=== PATIENT | female | born 1960 | race Caucasian/White ===

== ENCOUNTER 2019-07-21 16:56 | Outpatient (REF) | payer BC, SELFPAY ==
[2019-07-21 18:24] LABS: ALT 52 U/L (14-59); AST 19 U/L (15-37); Albumin 3.7 g/dL (3.4-5.0); Alkaline Phosphatase 115 U/L (46-116); Anion Gap 11.7 mmol/L (3-11); BUN 16 mg/dL (7-18); Bilirubin, Total 0.3 mg/dL (0.2-1.0); CO2 25.3 mmol/L (21.0-32.0); CREATININE 0.61 mg/dL (0.55-1.02); Calcium 9.1 mg/dL (8.5-10.1); Calculated LDL 119 mg/dL; Chloride 105 mmol/L (98-107); Cholesterol 196 mg/dL (50-200); Glucose 93 mg/dL (70-100); HDL Cholesterol 56 mg/dL (40-60); Potassium 3.9 mmol/L (3.5-5.1); Sodium 142 mmol/L (136-145); Total Protein 7.1 g/dL (6.4-8.2); Triglyceride 105 mg/dL (30-150)
== END 2019-07-21 17:16 ==
LOC: NCHCN 16:56
PROVIDERS: PCP Nurse Practitioner; Visit Provider Nurse Practitioner
DX: R10.9 Unspecified abdominal pain (principal); Z13.220 Encounter for screening for lipoid disorders; Z00.00 Encounter for general adult medical examination without abnormal findings; Z98.42 Cataract extraction status, left eye
CPT/HCPCS: 80053; 80061; 87086

== ENCOUNTER 2019-08-14 00:25 | Outpatient (CLI) | payer BC, SELFPAY ==
--- NOTE | 2019-08-14 15:54 | DI.MAMMO_ITS ---
EXAM: MG MAMMO SCREENING CLINICAL HISTORY: SCREENING Z12.39 TECHNIQUE: Mammograms were interpreted according to the usual protocol including computer analysis w [email or web address] CAD system, tomosynthesis and C-view imaging. COMPARISON: 2009 through 2016 FINDINGS: The breasts are composed of fatty density tissue, Breast Density category A. No suspicious masses or suspicious microcalcifications are seen. No skin thickening or abnormal axillary lymph nodes are se en. There has been no significant change from prior exams. IMPRESSION: Category 1, negative mammogram. Yearly screening mammography is recommended. BI-RADS Cat 1 - Negative Breast Density - Category A - Almost entirely fatty
== END 2019-08-14 00:45 ==
PROVIDERS: PCP Nurse Practitioner; Visit Provider Nurse Practitioner
DX: Z12.31 Encounter for screening mammogram for malignant neoplasm of breast (principal)
CPT/HCPCS: 77063; 77067

== ENCOUNTER 2019-08-20 12:25 | Outpatient (CLI) | payer BC, SELFPAY ==
[2019-08-20 13:12] LABS: Troponin I < 0.05 ng/mL (0.00-0.06)
[2019-08-20 13:38] LABS: D-Dimer 481 ng/mlFEU (<500)
== END 2019-08-20 12:45 ==
PROVIDERS: PCP Nurse Practitioner; Visit Provider Nurse Practitioner
DX: R07.9 Chest pain, unspecified (principal); R06.02 Shortness of breath; R07.89 Other chest pain
CPT/HCPCS: 36415; 84484; 85379

== ENCOUNTER 2019-08-21 07:16 | Outpatient (CLI) | payer BC, SELFPAY ==
--- NOTE | 2019-08-21 15:37 | DI.RAD_ITS ---
EXAM: XR CHEST 2V PA LATERAL CLINICAL HISTORY: SHORTNESS OF BREATH, R06.02 TECHNIQUE: COMPARISON: CHEST 2 VIEWS PA,LAT from 04/11/2017 FINDINGS: Heart is not enlarged. There is mild elevation of the diaphragm on the right unchanged from previous examination of March 2017. Lungs are predominantly clear with minimal apparent changes of scarring. No pleural effusion seen. IMPRESSION: No evidence of acute change.
== END 2019-08-21 07:36 ==
PROVIDERS: PCP Nurse Practitioner; Visit Provider Nurse Practitioner
DX: R06.02 Shortness of breath (principal); R00.2 Palpitations; I49.3 Ventricular premature depolarization; I49.1 Atrial premature depolarization
CPT/HCPCS: 71046; 93225

== ENCOUNTER 2019-08-22 17:50 | Outpatient (CLI) | payer BC, SELFPAY ==
--- NOTE | 2019-08-25 08:45 | W.HOLTRPT ---
Holter Monitor Report Holter Monitor Note: Rhythm throughout was sinus Average heart rate was 82/minute. There were very rare ventricular ectopic beats . There were occasional atrial premature beats, some of which appeared symptomatic. There was a run of atrial premature beats . There were no pauses or bradydysrhythmias Date of service: 08/25/19 Time of Service: 08:49
== END 2019-08-22 18:10 ==
PROVIDERS: PCP Nurse Practitioner; Visit Provider Nurse Practitioner
DX: R06.02 Shortness of breath (principal); I49.3 Ventricular premature depolarization; I49.1 Atrial premature depolarization; R00.2 Palpitations
CPT/HCPCS: 93226

== ENCOUNTER 2019-08-29 00:43 | Outpatient (CLI) | payer BC, SELFPAY ==
--- NOTE | 2019-08-29 14:45 | DI.US_ITS ---
APPROVED REPORT Conclusion Left Ventricle : The left ventricle is normal. There is normal left ventricular wall thickness. The l eft ventricular diastolic function is normal. Left ventricular systolic function is normal. There is normal LV segmental wall motion. LVEF is 60-64%. Right Ventricle : The right ventricle is normal size. The right ventricular systolic function is norm al. Atria : The left atrium is normal. The right atrium size is normal. Aortic Valve : Aortic valve is grossly normal in structure. There is no aortic valvular stenosis. No aortic regurgitation is present. Mitral Valve : The mitral valve is normal in structure. No evidence of mitral valve stenosis. Trace m itral regurgitation. Tricuspid Valve : The tricuspid valve is normal in structure. Trace tricuspid regurgitation. Pulmonic Valve : Pulmonic valve is not well visualized. Great Vessels : IVC is normal in size and collapses >50% with inspiration. Estimated RVSP between 18 -21 mmHg. Pericardium : There is no pericardial effusion. Prominent anterior epicardial fat pad is present. EXAM: Comprehensive 2D, Doppler, and color-flow Echocardiogram Patient Location: Out-Patient Triage Licensed Practical Nurse: JENNIFRE Villavicencio (AE) Indications: Chest Pain Left Ventricle The left ventricle is normal. Left ventricular systolic function is normal. There is normal left vent ricular wall thickness. There is normal LV segmental wall motion. The left ventricular diastolic func tion is normal. LVEF is 60-64%. Right Ventricle The right ventricle is normal size. The right ventricular systolic function is normal. Atria The left atrium is normal. The right atrium size is normal. Aortic Valve Aortic valve is grossly normal in structure. There is no aortic valvular stenosis. No aortic regurgit ation is present. Mitral Valve The mitral valve is normal in structure. No evidence of mitral valve stenosis. Trace mitral regurgita tion. Tricuspid Valve The tricuspid valve is normal in structure. There is no tricuspid valve stenosis. Trace tricuspid reg urgitation. Pulmonic Valve Pulmonic valve is not well visualized. Great Vessels The aortic root size is normal. The ascending aorta is normal in size. IVC is normal in size and carlotta apses >50% with inspiration. Estimated RVSP between 18-21 mmHg. Pericardium There is no pericardial effusion. Prominent anterior epicardial fat pad is present. 2D Dimensions IVSd 0.98 cm F: 0.6-1.0 LV EDV A2C 67.87 mL PWd 0.98 cm F: 0.6 - 1.0 LV EDV A4C 94.61 mL LVDd 4.35 cm F: 3.9 - 5.3 LA Volume Index A2C 22.37 mL/m2 LVDs 2.88 cm F: 2.2 - 3.5 LA Volume Index A4C 17.25 mL/m2 Aortic Root 2.82 cm F: 2.7 - 3.3 LA Volume Index Biplane 20.33 mL/m2 Left Atrium 3.05 cm F: 2.7 - 3.8 LA Area A4C 14.72 cm2 RA Area A4C 14.21 cm2 LA Area A2C 17.34 cm2 LVOT 1.92 cm (M/F) 1.5-2.5 LA/Aortic Root Ratio 0.93 Ascending Aorta 3.11 cm F: 2.3 - 3.1 EF AP4 59.12 % LVEF (Teich) 62.91 % EF AP2 62.18 % LVEF (Jeffers's) 61.10 % F: 54 - 74 EF BP 61.10 % FS 33.80 % LV Diastology E Decel Time 334.00 (160-240 msec) E/A Ratio 1.0 MED E' 0.08 (>0.07 m/s) LV E/e MED 6.96 (<14) LAT E' 0.12 (>0.1 m/s) LV E/e LAT 4.93 (<14) Aortic Valve LVOT Area 2.91 cm2 LVOT Peak Damian. 1.07 m/s LVOT Mean Damian. 0.70 m/s LVOT Peak Gr. 4.55 mmHg LVOT Mean Gr. 2.29 mmHg LVOT VTI 0.21 m AoV Peak Damian. 1.33 (0.5-1.3 m/s) AoV Mean Damian. 0.98 m/s AO Peak GR. 7.04 mmHg AO Mean GR. 4.20 (<5 mmHg) AO VTI 0.27 (0.18-0.25 m) KARLEE (VTI) 2.28 (2.5-4.5 cm2) KARLEE (VTI) Index 1.07 cm/m2 Mitral Valve MV E Max Damian. 0.59 (0.4-1.3 m/s) MV A Velocity 0.61 (0.4-1.3 m/s) E/A Ratio 0.97 MV Decel. Time 334.27 (160-240 msec) MV PHT 96.94 msec MVA PHT 2.27 cm2 Pulmonary Valve PV Peak Velocity 0.81 (0.5-1.5 m/s) Tricuspid Valve TR P. Velocity 2.11 m/s TV Regurg Vmax 2.11 m/s RVSP 20.84 mmHg TR P. Gradient 17.84 mmHg
== END 2019-08-29 01:03 ==
PROVIDERS: PCP Nurse Practitioner; Visit Provider Nurse Practitioner
DX: R07.89 Other chest pain (principal); R00.2 Palpitations; I10 Essential (primary) hypertension
CPT/HCPCS: 93306

== ENCOUNTER 2019-09-01 00:49 | Outpatient (CLI) | payer BC, SELFPAY ==
--- NOTE | 2019-09-01 08:15 | DI.NM_ITS ---
APPROVED REPORT Exam: Exercise Treadmill Patient Location: Out-Patient Stress Nurse: Mikala Garcia RN Baseline Rhythm: NSR BMI: 45.90 Indications: Pre-screening for planned Endoscopy procedure. Pt reports that for about a month she has been experiencing a constant chest pressure/heaviness that can be worsened by exercise or laying enedina n on her left side. Medical History Medical History: HTN, Obesity Cardiac Medications: Propranolol Allergies: No known drug allergies Cardiac Risk Factors: HTN Previous Cardiac Procedures: SVT Ablation procedure in 2009. Pretest Chest Pain Characteristics: Atypical angina Exercise History: Sedentary Lung Sounds: Clear to auscultation Heart Sounds: Regular Stress Test Details Test: Exercise stress testing was performed using a Randal protocol. Rest Isotope: Tc-99m Sestamibi. Dose: 12.0 Date: 09/01/2019 Injection Time: 0815 Stress Isotope: Tc-99m Sestamibi. Dose: 38.0 Date: 09/01/2019 Injection Time: 1050 HR Max Heart Rate (APMHR): 162 bpm Resting HR Supine: 72 bpm Target HR (85% APMHR): 137 bpm Resting HR Standin bpm BP Resting BP Supine: 148/90 mmHg Resting BP Standin/92 mmHg Max BP: 188/70 mmHg Recovery BP: 152/88 mmHg BP response to stress: Normal blood pressure response to stress. ECG Resting ECG: Sinus Rhythm Ectopy: none Stress ECG: Sinus Tachycardia ST Change: Normal Arrhythmia: None Recovery ECG: Sinus Rhythm Recovery ST Change: Normal Clinical Time of Stop for Randal: 0601 Reason for Termination: Fatigue Exercise duration: 6 min01 sec Highest Stage Achieved: Stage 2: 2.5 mph at 12% grade. Exercise capacity: 7.05 METs Functional Capacity: Average Capacity Scale: Sedentary Stress ECG Conclusion 1. The patient exercised for 6 minutes. She was able to perform 7 METS. 2. Study was stopped due to fatigue. 3. There was no evidence of inducible ischemia on exercise ECG. 4. The Brown Score ( 5) estimates an annual cardiovascular mortality of 1% and a five year survival of 94%. Using the Brown Score there is a low probability of any angiographic coronary disease. Test Summary Supine 72 148/90 6 out of 10 chest pressure prior to exercise Standing 83 148/92 1 03:00 10 1.7 130 4.64 160/86 2 02:59 12 2.5 154 7.05 174/86 1 min recovery 130 160/86 3 min recovery 96 162/90 6 min recovery 97 152/88 No change in quality or severity of baseline chest pressure througout t esting and recovery. MPI Conclusion Stress ejection fraction was 76% with normal wall motion. Interpretation of the study was significantly impacted by bowel attenuation. There was no clear evidence of stress-induced ischemia. This represents a normal stress test.
== END 2019-09-01 01:09 ==
PROVIDERS: PCP Nurse Practitioner; Visit Provider Nurse Practitioner
DX: R07.89 Other chest pain (principal); I10 Essential (primary) hypertension; E66.9 Obesity, unspecified; Z01.818 Encounter for other preprocedural examination
CPT/HCPCS: 78452; 93017

== ENCOUNTER 2019-09-10 01:20 | Outpatient (CLI) | payer BC, SELFPAY ==
--- NOTE | 2019-09-10 11:26 | PFT_ITS ---
PULMONARY FUNCTION TEST REPORT DATE OF SERVICE: September 10, 2019 REQUESTING PROVIDER: Liset Vega N.P. Spirometry shows no evidence of obstructive airways disease; no bronchodilator response. Lung volumes show mild restriction. This may be related to chest wall restriction from underlying obesity with very low ERV. Diffusion capacity mildly elevated. Airways resistance normal. IMPRESSION: No evidence of obstructive airways disease. There is a pattern suggestive of mild underlying restriction, though this may be related to chest wall restriction from underlying obesity. This is associated with elevated diffusion capacity. Differential diagnosis includes true restrictive lung disease such as one seen in interstitial lung disease, as well as respiratory neuromuscular weakness. If the latter is considered in the differential diagnosis, proceeding with MIP, MEP and FVV maneuvers is recommended. If interstitial lung disease is suspected, proceeding with advanced imaging should be considered. Clinical correlation therefore recommended. LISSETH/nazia D/
[2019-09-10] MEDS: Albuterol HFA 18 GM 200 PUFF INH IH (14:42)
[2019-09-10] MEDS: Inhaler, Assist Device 1 EACH MC (14:42)
== END 2019-09-10 01:40 ==
PROVIDERS: PCP Nurse Practitioner; Visit Provider Nurse Practitioner
DX: R06.02 Shortness of breath (principal); R05 Cough
CPT/HCPCS: 94060; 94150; 94726; 94729

== ENCOUNTER 2019-09-12 00:52 | Outpatient (CLI) | payer BC, SELFPAY ==
--- NOTE | 2019-09-12 13:21 | DI.NM_ITS ---
CLINICAL HISTORY: SOB,CHEST PAIN AND HEAVINESS, R07.89. TECHNIQUE: Injected Dose: Ventilation: 34 mCi Tc-99m DTPA via inhalation Perfusion: 4.5 mCi Tc-99m MAA via IV COMPARISON: XR CHEST 2V PA LATERAL from 09/12/2019 FINDINGS: Chest X-Ray: Clear lungs. Perfusion: Normal. Ventilation:Normal IMPRESSION: 1. Low probability VQ examination. . . . Modified PIOPED II criteria Probability Criteria High Two or more segments of V/Q mismatch Low Normal Perfusion, Non segmental perfusion abnormalitie s, pleural effusion in at least 1/3 of pleural cavity with no other defect Radiograph/perfusion matched defect in mid to upper lung confined to segment, one to three small segmental perfusion defects (<25% of segment) Perfusion defect smaller than corresponding radiogra phic lesion. Intermediate All other findings
--- NOTE | 2019-09-12 13:21 | DI.RAD_ITS ---
EXAM: XR CHEST 2V PA AND LATERAL INDICATION: SOB, CHEST PAIN AND HEAVINESS, R07.89. COMPARISON: XR CHEST 2V PA AND LATERAL from 08/21/2019 TECHNIQUE: 2D digital imaging was performed. FINDINGS: Heart size and pulmonary vasculature are within normal limits. No focal consolidating infiltrates ar e present. No effusions or pneumothoraces are present. Degenerative changes are seen in the spine. IMPRESSION: No acute pulmonary process.
== END 2019-09-12 01:12 ==
PROVIDERS: PCP Nurse Practitioner; Visit Provider Internal Medicine Cardiovascular Disease
DX: R07.89 Other chest pain (principal); R06.02 Shortness of breath
CPT/HCPCS: 78582; 71046

== ENCOUNTER 2020-11-23 08:46 | Outpatient (CLI) | payer MEDICAID, SELFPAY ==
[2020-11-24 14:31] LABS: COVID-19 RT-PCR UVMMC Result Negative (Negative)
== END 2020-11-23 09:06 ==
PROVIDERS: PCP Nurse Practitioner; Visit Provider Nurse Practitioner
DX: Z20.822 Contact with and (suspected) exposure to COVID-19 (principal)
CPT/HCPCS: U0003

== ENCOUNTER 2021-03-31 03:07 | Outpatient (CLI) | payer MEDICAID, SELFPAY ==
[2021-03-31 12:34] LABS: Calculated LDL 143 mg/dL (<100); Cholesterol 222 mg/dL (<200); HDL Cholesterol 50 mg/dL (40-60); TSH (W/Ref FT4) 1.21 uIU/mL (0.36-3.74); Triglyceride 148 mg/dL (<150)
== END 2021-03-31 03:08 | disposition home or self-care (01) ==
LOC: LOS 03:07
PROVIDERS: PCP Nurse Practitioner; Visit Provider Nurse Practitioner
DX: R53.83 Other fatigue (principal); Z11.3 Encounter for screening for infections with a predominantly sexual mode of transmission; Z13.6 Encounter for screening for cardiovascular disorders
CPT/HCPCS: 36415; 80061; 83036; 84443

== ENCOUNTER 2021-04-01 03:34 | Outpatient (CLI) | payer MEDICAID, SELFPAY ==
--- NOTE | 2021-04-01 07:14 | DI.MAMMO_ITS ---
Exam(s) MAMMO SCREENING EXAM: MAMMO SCREENING CLINICAL HISTORY: screening,Z12.39 TECHNIQUE: Bilateral full field digital CC and MLO mammographic images were obtained with 3D tomosyn thesis and utilizing computer aided detection (CAD). COMPARISON: Available for comparison. FINDINGS: Masses/Architectural Distortion: There are 2 small asymmetries in the outer left breast on the CC vie w. Microcalcifications: No suspicious pleomorphic-type are seen. Skin Thickening/Nipple Retraction: None. IMPRESSION: 1. Small focal asymmetries in the outer left breast seen on the CC view. 2. Spot compression views are requested for further evaluation. Ultrasound may be indicated at that time. BI-RADS Category 0 - Assessment Incomplete: Need additional imaging evaluation Breast Density - Category A - Almost entirely fatty Breast density category C or D implies that the patient has dense breast tissue. Dense breast tissue is very common and is not abnormal but dense breast tissue can make it harder to find cancer on a ma mmogram. Also, dense breast tissue may increase their breast cancer risk. This information about the result of the mammogram report was provided to the patient to raise their awareness. Use this report when you speak with the patient about their risks for breast cancer, which includes their family hist ory. At that time, you may recommend for more screening tests (Ultrasound or MRI) as they might be us eful based on their risk. A negative radiographic report should not delay biopsy if a dominant or clinically suspicious mass is present. Up to ten percent of cancers are not identified on mammography. A negative report may reinforce clinical impression. Adenosis and dense breasts may obscure an underlying neoplasm. False positive reports average 6 to 10%. Patient will receive a letter notifying them of these results.
== END 2021-04-01 03:54 ==
PROVIDERS: PCP Nurse Practitioner; Visit Provider Nurse Practitioner
DX: Z12.31 Encounter for screening mammogram for malignant neoplasm of breast (principal); R92.8 Other abnormal and inconclusive findings on diagnostic imaging of breast
CPT/HCPCS: 77063; 77067

== ENCOUNTER 2021-04-20 00:47 | Outpatient (CLI) | payer MEDICAID, SELFPAY ==
--- NOTE | 2021-04-20 10:15 | DI.MAMMO_ITS ---
Exam(s) MG MAMMO SCREEN CALL BACK UNI US BREAST LT COMPLETE EXAM: MG MAMMO SCREEN CALL BACK UNI-LEFT AND COMPLETE LEFT BREAST ULTRASOUND CLINICAL HISTORY: F/U MAMMO,SMALL FOCAL ASYMMETRIES OUTER LT BREAST. TECHNIQUE: Unilateral spot mammographic images were obtained with 3D tomosynthesis and utilizing [employer] puter aided detection (CAD). . COMPLETE LEFT breast Ultrasound was also performed, including all 4 quadrants of the left breast as w ell as the retroareolar region as well as the left axilla.. COMPARISON: Prior mammograms were reviewed. This additional imaging was performed due to findings described on the recent screening mammogram of 04/01/2021. FINDINGS: Additional mammographic views performed todayrenders 1 of the nodules less visible. The other persist s but has appearance of a probable small benign lymph node.. Ultrasound performed today reveals no focal findings in all 4 quadrants nor in the retro areolar vanessa on. This implies that the small nodules probably benign lymph node. Scanning of the left axilla reveals no adenopathy. IMPRESSION: As above. These small nodule that remains on spot compression view is probably benign lymph node give n its appearance plus the fact that it is not able to be visualized on ultrasound. Appropriate follow-up is repeat left breast MAMMOGRAM in 6 months. The patient was informed of these findings and recommendations prior to leaving the department today. BI-RADS Category 3 - 6 month - Probably Benign Finding: Recommend follow-up mammography in 6 months Breast Density - Category B - Scattered areas of fibroglandular density Breast density Category C or D implies that the patient has dense breast tissue. Dense breast tissue can make it harder to find cancer on a mammogram. Dense breast tissue is also associated with an incr eased risk of breast cancer. This information about the result of the mammogram report was provided to the patient to raise their awareness. Use this report when you speak with the patient about their risks for breast cancer, which includes their family history. At that time, you may recommend additional screening tests (Ultrasoun d or MRI) as these tests may add significant information. A negative radiographic report should not delay biopsy if a dominant or clinically suspicious mass is present. Up to ten percent of cancers are not identified on mammography. A negative report may reinforce clinical impression. Adenosis and dense breasts may obscure an underlying neoplasm. False positive reports average 6 to 10%. Patient will receive a letter notifying them of these results.
== END 2021-04-20 01:07 ==
PROVIDERS: PCP Nurse Practitioner; Visit Provider Nurse Practitioner
DX: Z12.31 Encounter for screening mammogram for malignant neoplasm of breast (principal); R92.8 Other abnormal and inconclusive findings on diagnostic imaging of breast; N64.89 Other specified disorders of breast; N63.20 Unspecified lump in the left breast, unspecified quadrant
CPT/HCPCS: 76642; 77063; 77067

== ENCOUNTER 2021-07-05 01:13 | Outpatient (CLI) | payer MEDICAID, SELFPAY ==
--- NOTE | 2021-07-05 07:30 | DI.CT_ITS ---
Exam(s) CT ABDOMEN PELVIS W EXAM: CT ABDOMEN PELVIS W CLINICAL HISTORY: inguinal hernia vs diverticulitis,LLQ PAIN,R10.32. TECHNIQUE: Imaging Protocol: Axial computed tomography images with coronal and sagittal reformatted images were created and reviewed CONTRAST MATERIAL: Intravenous: Omnipaque 350 Contrast volume:100 ml Oral: yes COMPARISON: CT ABD PELVIS WITH CONTRAST from 02/26/2018 FINDINGS: ABDOMEN: Lung Bases: Normal where visualized. Liver: Enlarged. Fatty infiltration.. Stable hemangioma superior left lobe Gallbladder and biliary tract: Cholelithiasis. No gallbladder wall thickening or biliary dilatation. . Pancreas: Somewhat atrophic., no abnormal calcifications or inflammatory process. Spleen: Normal. Kidneys: Normal size, contour and axis. No radiodense stones or obstructive uropathy. No masses seen. Adrenal glands: No masses seen. Abdominal Aorta: Abdominal portion non-dilated. Stomach and small bowel: Tiny diverticulum descending duodenum. Stomach unremarkable. No small bowel dilatation or inflammation. PELVIS: Bladder: No gross wall thickening. No calculi.No focal mass. Bowel: Mild diverticulosis sigmoid colon. No obstruction. Appendix normal. Some thickening is seen in the cecum which could represent fecal material or contraction, however mass cannot be excluded. Peritoneal cavity: No ascites, collection or mesenteric inflammatory response. Bones: Within normal limits for age. Reproductive organs: Hysterectomy. Lymph nodes: Unremarkable. Soft tissues: No evidence of inguinal hernia. Impression: Mild sigmoid diverticulosis. No evidence of diverticulitis or inguinal hernia. Question of thickening of the wall of the cecum. Correlation with colonoscopy is recommended. RADIATION DOSE DELIVERED: Total DLP DATA REPOSITORY: All CT scans at this facility are submitted to the National Radiology Data Registry (NRDR) Dose Index Registry (DIR) with the [employer] (ACR). RADIATION OPTIMIZATION: All CT scans at this facility use at least one of these dose optimization te chniques: automated exposure control; mA and/or kV adjustment per patient size (includes targeted exa ms where dose is matched to clinical indication); or iterative reconstruction.
[2021-07-05] MEDS: Omnipaque 350 MG/ML 50 ML BTL IJ (12:27)
[2021-07-05] MEDS: Breeza Beverage 473 ML BTL PO (12:29)
[2021-07-05] MEDS: Omnipaque 350 MG/ML 100 ML BTL IJ (14:02)
[2021-07-05] MEDS: Normal Saline Flush 10 ML SYR IVP (14:05)
== END 2021-07-05 01:33 ==
PROVIDERS: PCP Nurse Practitioner; Visit Provider Nurse Practitioner Family
DX: R10.32 Left lower quadrant pain (principal); K57.30 Diverticulosis of large intestine without perforation or abscess without bleeding
CPT/HCPCS: 74177; J3490; Q9967

== ENCOUNTER → 2022-04-12 01:21 | Outpatient (CLI) | payer OTHER, SELFPAY ==
--- NOTE | 2022-04-12 11:20 | DI.MAMMO_ITS ---
Exam(s) MAMMO SCREENING EXAM: MAMMO SCREENING CLINICAL HISTORY: screening,Z12.39. TECHNIQUE: Bilateral full field digital CC and MLO mammographic images were obtained with 3D tomosyn thesis and utilizing computer aided detection (CAD). COMPARISON: Prior mammograms were reviewed, the most recent being March 2021.. Ultrasound of March 2021 was also reviewed FINDINGS: There has been no significant change in the appearance and distribution of the fibroglandular tissue. There are no CAD designations in either breast There are no new spiculated masses nor malignant appearing microcalcification groups. Previously described small benign-appearing left breast nodule is unchanged and most probably benign intramammary lymph node, particularly since it was not visible on ultrasound examination of March 2021 There is no significant architectural distortion nor skin thickening-retraction. IMPRESSION: No radiographic evidence of malignancy. BI-RADS Category 1 - Negative Breast Density - Category B - Scattered areas of fibroglandular density Breast density Category C or D implies that the patient has dense breast tissue. Dense breast tissue can make it harder to find cancer on a mammogram. Dense breast tissue is also associated with an incr eased risk of breast cancer. This information about the result of the mammogram report was provided to the patient to raise their awareness. Use this report when you speak with the patient about their risks for breast cancer, which includes their family history. At that time, you may recommend additional screening tests (Ultrasoun d or MRI) as these tests may add significant information. A negative radiographic report should not delay biopsy if a dominant or clinically suspicious mass is present. Up to ten percent of cancers are not identified on mammography. A negative report may reinforce clinical impression. Adenosis and dense breasts may obscure an underlying neoplasm. False positive reports average 6 to 10%. Patient will receive a letter notifying them of these results.
== END ==
PROVIDERS: PCP Nurse Practitioner; Visit Provider Nurse Practitioner
DX: Z12.31 Encounter for screening mammogram for malignant neoplasm of breast (principal)
CPT/HCPCS: 77063; 77067

== ENCOUNTER 2022-04-12 02:26 | Outpatient (CLI) | payer OTHER, SELFPAY ==
[2022-04-12 13:04] LABS: Hemoglobin A1C 5.7 % (<5.7)
[2022-04-12 13:10] LABS: Anion Gap 6.8 mmol/L (3-11); BUN 17 mg/dL (7-18); CO2 29.2 mmol/L (21.0-32.0); CREATININE 0.9 mg/dL (0.55-1.02); Chloride 107 mmol/L (98-107); Glucose 82 mg/dL (74-106); Potassium 4.5 mmol/L (3.5-5.1); Sodium 143 mmol/L (136-145); TSH (W/Ref FT4) 1.12 uIU/mL (0.36-3.74)
== END 2022-04-12 02:27 | disposition home or self-care (01) ==
PROVIDERS: PCP Nurse Practitioner; Visit Provider Nurse Practitioner
DX: I10 Essential (primary) hypertension (principal); R53.83 Other fatigue; R73.03 Prediabetes
CPT/HCPCS: 36415; 80048; 83036; 84443

== ENCOUNTER 2024-04-15 11:08 | Outpatient (CLI) | payer SELFPAY ==
[2024-04-15 12:27] LABS: Anion Gap 6.1 mmol/L (3-11); BUN 13 mg/dL (7-18); CO2 29.9 mmol/L (21.0-32.0); CREATININE 0.7 mg/dL (0.55-1.02); Calcium 8.9 mg/dL (8.5-10.1); Calculated LDL 104 mg/dL (<100); Chloride 107 mmol/L (98-107); Cholesterol 186 mg/dL (<200); Estimated GFR 97.72 (mL/min/1.73m2); Glucose 121 mg/dL (74-106); HDL Cholesterol 57 mg/dL (40-60); Sodium 143 mmol/L (136-145); TSH (W/Ref FT4) 1.03 uIU/mL (0.36-3.74); Triglyceride 127 mg/dL (<150)
[2024-04-15 12:31] LABS: Hemoglobin A1C 5.8 % (<5.7)
== END 2024-04-15 11:09 | disposition home or self-care (01) ==
LOC: LOS 11:08
PROVIDERS: PCP Nurse Practitioner Family; Referring Provider Nurse Practitioner Family; Visit Provider Nurse Practitioner Family
DX: G25.0 Essential tremor (principal); K21.9 Gastro-esophageal reflux disease without esophagitis; E66.01 Morbid (severe) obesity due to excess calories; I10 Essential (primary) hypertension
CPT/HCPCS: 36415; 80048; 80061; 83036; 84443